=== PATIENT | male | born 1965 | race Caucasian/White ===

== ENCOUNTER 2019-08-24 03:41 | Emergency (ER) | payer BC ==
[2019-08-24] MEDS ORDERED: predniSONE 20 MG TAB ONE (04:39)
[2019-08-24] MEDS ORDERED: Benzonatate 100 MG CAP ONE (04:39)
--- NOTE | 2019-08-24 08:12 | RAD ---
TWO VIEWS OF THE CHEST: COMPARISON: None. HISTORY: Cough. FINDINGS: Two views of the chest show normal sized cardiomediastinal silhouette. There is no evidence of consol idation, mass, or pleural effusion. The bones are unremarkable. IMPRESSION: No evidence of acute cardiopulmonary disease. POS: C
== END 2019-08-24 04:50 | disposition home or self-care (01) ==
LOC: NAV ERS 03:41
DX: J20.9 Acute bronchitis, unspecified (principal); B34.9 Viral infection, unspecified; E11.9 Type 2 diabetes mellitus without complications; B20 Human immunodeficiency virus [HIV] disease; F17.210 Nicotine dependence, cigarettes, uncomplicated
CPT/HCPCS: 71046; 94640; 94760; J7512; J7620